=== PATIENT | female | born 2000 | race African-American/Black ===

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

== ENCOUNTER 2022-05-11 08:16 | Inpatient (IN) | payer OTHER ==
[~2022-05-11] VITALS: Ht 157.5 cm; Wt 93.9 kg
[2022-05-11] MEDS ORDERED: FENTANYL CITRATE/PF 50MCG/ML 2ML VIAL ONE (09:00)
[2022-05-11] MEDS ORDERED: EPHEDRINE SULFATE 50MG/ML VIAL ONE (09:00)
[2022-05-11] MEDS ORDERED: MORPHINE SULFATE/PF 1MG/ML 10ML AMP ONE (09:00)
[2022-05-11] MEDS ORDERED: CLINDAMYCIN 900 MG PREMIX 50 ML IV ONE (09:01)
[2022-05-11] MEDS ORDERED: OXYTOCIN 10 UNITS/ML 1ML ONE (09:01)
[2022-05-11] MEDS ORDERED: PHENYLEPHRINE HCL 10 MG/ML 1ML (IV VIAL) IV ONE (09:01)
[2022-05-11] MEDS ORDERED: ONDANSETRON HCL 4MG/2ML INJ ONE (09:01)
[2022-05-11] MEDS ORDERED: METHYLERGONOVINE MALEATE 0.2 MG/ML IM PRN (09:30)
[2022-05-11] MEDS ORDERED: LACTATED RINGERS 1,000 ML IV SCH (09:30)
[2022-05-11] MEDS ORDERED: NALOXONE HCL 0.4 MG/ML 1ML VIAL IM PRN (09:30)
[2022-05-11] MEDS: LACTATED RINGERS 1,000 ML IV SCH ×2 (10:00→16:00)
[2022-05-11 10:35] LABS: BASOPHILS % 0.3 % (0.0-2.0); EOSINOPHILS % 1.4 % (0.0-5.0); HEMATOCRIT. 30.1 % (36.0-48.0); HEMOGLOBIN. 9.9 g/dL (12.0-16.0); LYMPHOCYTES % 18.2 % (20.0-50.0); MEAN CORPUSCULAR HEMOGLOBIN 28.9 pg (28.0-32.0); MEAN CORPUSCULAR VOLUME 87.9 fL (81.0-99.0); NEUTROPHILS % 72.1 % (40.0-76.0); PLATELET 163 x1000/uL (130-400); RED BLOOD CELL COUNT 3.42 mill/uL (4.2-5.4); RED CELL DISTRIBUTION WIDTH 16.4 % (11.6-14.6)
[2022-05-11 10:36] LABS: CLARITY URINE CLEAR (CLEAR); COLOR URINE YELLOW (YELLOW); KETONES URINE NEGATIVE (NEGATIVE); LEUKOCYTE ESTERASE URINE TRACE (NEGATIVE); NITRITE URINE NEGATIVE (NEGATIVE); OCCULT BLOOD URINE NEGATIVE (NEGATIVE); PROTEIN URINE NEGATIVE (NEGATIVE); SPECIFIC GRAVITY URINE 1.003 (1.005-1.030); UROBILINOGEN URINE 0.2 E.U./dL (0.2-1.0)
[2022-05-11 10:45] LABS: CHLORIDE 109 mEq/L (98-107)
[2022-05-11 10:49] LABS: PARTIAL THROMBOPLASTIN TIME 27.6 sec (23.4-31.0); PROTHROMBIN TIME 10.3 sec (9.6-11.0)
[2022-05-11 11:17] LABS: *AMPHETAMINES SCREEN URINE NEGATIVE (NEGATIVE); *BARBITURATES SCREEN URINE NEGATIVE (NEGATIVE); *BENZODIAZEPINES SCREEN URINE NEGATIVE (NEGATIVE); *COCAINE SCREEN URINE NEGATIVE (NEGATIVE); CANNABINOID URINE SCREEN NEGATIVE (NEGATIVE); METHADONE URINE SCREEN NEGATIVE (NEGATIVE); OPIATES URINE SCREEN NEGATIVE (NEGATIVE); PHENCYCLIDINE URINE SCREEN NEGATIVE (NEGATIVE)
[2022-05-11] MEDS ORDERED: KCL 20MEQ/100ML PREMIX 100 ML IV SCH (11:30)
[2022-05-11 14:04] LABS: HEPATITIS B SURFACE ANTIGEN NEGATIVE
[2022-05-11] MEDS ORDERED: CITRIC ACID/SODIUM CITRATE SOLN 30ML UDC PO NR (14:15)
[2022-05-11] MEDS ORDERED: DIPHENHYDRAMINE 50MG/ML VIAL ONE (17:38)
[2022-05-11] MEDS ORDERED: KETOROLAC 60MG/2ML VIAL IM ONE (17:38)
[2022-05-11] MEDS ORDERED: BUTORPHANOL TARTRATE 2 MG/ML VIAL IV PRN (18:15)
[2022-05-11] MEDS ORDERED: NALOXONE HCL 0.4 MG/ML 1ML VIAL IV PRN (18:15)
[2022-05-11] MEDS ORDERED: DIPHENHYDRAMINE 50MG/ML VIAL IV PRN (18:15)
[2022-05-11 20:15] VITALS: BP 117/65
[2022-05-11] MEDS: OXYTOCIN 30 UNITS/500ML NS PMX 500 ML IV SCH ×2 (20:18→22:09)
[2022-05-11 21:15] VITALS: BP 119/64
[2022-05-11] MEDS: KETOROLAC 30MG/ML VIAL IV SCH (22:09)
[2022-05-12 00:01] VITALS: BP 103/57
[2022-05-12] MEDS: LACTATED RINGERS 1,000 ML IV SCH (02:15)
[2022-05-12 04:00] VITALS: BP 111/68
[2022-05-12] MEDS: KETOROLAC 30MG/ML VIAL IV SCH (04:09)
[2022-05-12 08:03] VITALS: BP 102/65
[2022-05-12 08:51] LABS: BASOPHILS % 0.5 % (0.0-2.0); EOSINOPHILS % 0.5 % (0.0-5.0); HEMATOCRIT. 24.6 % (36.0-48.0); HEMOGLOBIN. 8.1 g/dL (12.0-16.0); LYMPHOCYTES % 17.3 % (20.0-50.0); MEAN CORPUSCULAR VOLUME 88.5 fL (81.0-99.0); MEAN PLATELET VOLUME 8.8 fl (7.4-10.4); MONOCYTES % 7.5 % (2.0-8.0); NEUTROPHILS % 74.2 % (40.0-76.0); PLATELET 136 x1000/uL (130-400); RED BLOOD CELL COUNT 2.78 mill/uL (4.2-5.4); RED CELL DISTRIBUTION WIDTH 16.5 % (11.6-14.6)
[2022-05-12] MEDS ORDERED: HEMORRHOIDAL SUPP PR PRN (10:15)
[2022-05-12] MEDS ORDERED: IBUPROFEN 400MG TABLET PO PRN (10:15)
[2022-05-12] MEDS ORDERED: ONDANSETRON HCL 4MG/2ML INJ IV PRN (10:15)
[2022-05-12] MEDS ORDERED: RHO(D) IMMUNE GLOBULIN 300 MCG/SYR IM PRN (10:15)
[2022-05-12] MEDS ORDERED: OXYTOCIN 30 UNITS/500ML NS PMX 500 ML IV SCH (10:15)
[2022-05-12] MEDS: IBUPROFEN 800MG TABLET PO PRN (12:57)
[2022-05-12] MEDS ORDERED: FENTANYL CITRATE/PF 50MCG/ML 2ML VIAL IV PRN (13:00)
[2022-05-12] MEDS ORDERED: NALOXONE HCL 0.4 MG/ML 1ML VIAL IV PRN (13:00)
[2022-05-12] MEDS ORDERED: KETOROLAC 30MG/ML VIAL IV SCH (13:00)
[2022-05-12] MEDS ORDERED: MORPHINE SULFATE 10 MG/ML CPJ IV PRN (13:00)
[2022-05-12 16:30] VITALS: BP 129/73
[2022-05-12] MEDS: MAGNESIUM/ALUMINUM HYDROXIDE/SIMETHICONE 30ML UDC PO SCH ×2 (17:51→21:22)
[2022-05-12] MEDS: HYDROCODONE/ACETAMINOPHEN 5/325MG TABLET PO PRN (17:52)
[2022-05-12] MEDS: SIMETHICONE 80MG TABLET CHEW PO SCH ×2 (17:52→21:22)
[2022-05-12] MEDS: DOCUSATE SODIUM 100MG CAPSULE PO SCH (21:21)
[2022-05-12 22:00] VITALS: BP 120/70
[2022-05-13] VITALS: BP 98/52
[2022-05-13] MEDS: IBUPROFEN 800MG TABLET PO PRN ×2 (00:21→06:45)
[2022-05-13 06:07] VITALS: BP 132/52
[2022-05-13 06:55] LABS: BASOPHILS % 0.2 % (0.0-2.0); EOSINOPHILS % 1.3 % (0.0-5.0); HEMATOCRIT. 26.5 % (36.0-48.0); HEMOGLOBIN. 8.9 g/dL (12.0-16.0); LYMPHOCYTES % 17.8 % (20.0-50.0); MEAN CORPUSCULAR HEMOGLOBIN 29.4 pg (28.0-32.0); MEAN CORPUSCULAR VOLUME 87.6 fL (81.0-99.0); MEAN PLATELET VOLUME 9.4 fl (7.4-10.4); MONOCYTES % 9.3 % (2.0-8.0); NEUTROPHILS % 71.4 % (40.0-76.0); PLATELET 155 x1000/uL (130-400); RED BLOOD CELL COUNT 3.02 mill/uL (4.2-5.4); RED CELL DISTRIBUTION WIDTH 16.5 % (11.6-14.6)
[2022-05-13] MEDS: MAGNESIUM/ALUMINUM HYDROXIDE/SIMETHICONE 30ML UDC PO SCH ×3 (08:40→21:36)
[2022-05-13] MEDS: FERROUS SULFATE 325MG TABLET PO SCH ×2 (08:40→17:47)
[2022-05-13] MEDS: SIMETHICONE 80MG TABLET CHEW PO SCH ×3 (08:40→21:37)
[2022-05-13 11:00] VITALS: BP 127/70
[2022-05-13 16:00] VITALS: BP 129/74
[2022-05-13] MEDS: HYDROCODONE/ACETAMINOPHEN 5/325MG TABLET PO PRN (17:48)
[2022-05-13] MEDS: DOCUSATE SODIUM 100MG CAPSULE PO SCH (21:36)
[2022-05-13 22:09] VITALS: BP 123/73
[2022-05-14 05:17] VITALS: BP 121/70
[2022-05-14] MEDS: HYDROCODONE/ACETAMINOPHEN 5/325MG TABLET PO PRN (05:52)
[2022-05-14] MEDS: FERROUS SULFATE 325MG TABLET PO SCH (08:30)
[2022-05-14] MEDS: MAGNESIUM/ALUMINUM HYDROXIDE/SIMETHICONE 30ML UDC PO SCH (08:30)
[2022-05-14] MEDS: SIMETHICONE 80MG TABLET CHEW PO SCH (08:31)
[2022-05-14] MEDS ORDERED: IBUP-2030 MT (09:42)
[2022-05-14 10:00] VITALS: BP 120/62
[2022-05-14] MEDS ORDERED: MEASLES,MUMPS&RUBELLA VACCINE 1 VIAL SUBCUT ONE (10:15)
[2022-05-14] MEDS ORDERED: NALOXONE HCL 0.4MG/ML VIAL IV PRN (15:30)
[2022-05-14] MEDS ORDERED: MORPHINE SULFATE 4 MG/ML CPJ (NOT FOR IM USE) IV PRN (15:30)
== END 2022-05-14 17:15 | disposition home or self-care (01) | DRG 540 ==
LOC: OBSVTOIN 08:16 → 8 EST LDRP 08:16 → 8EST 19:58
PROVIDERS: ADMIT Obstetrics & Gynecology; ATTEND Obstetrics & Gynecology
PROC: 10D00Z1 Extraction of Products of Conception, Low, Open Approach (ICD-10-PCS; principal; 2022-05-11)
DX: O36.63X0 Maternal care for excessive fetal growth, third trimester, not applicable or unspecified (principal); D62 Acute posthemorrhagic anemia; O99.02 Anemia complicating childbirth; O48.0 Post-term pregnancy; Z20.822 Contact with and (suspected) exposure to COVID-19; Z88.1 Allergy status to other antibiotic agents; Z37.0 Single live birth; Z3A.40 40 weeks gestation of pregnancy
CPT/HCPCS: 36415; 76805; 76818; 80053; 80305; 81003; 84550; 85025; 85384; 86592; 86703; 86762; 86850; 86900; 87340; 87426; 88307; 90707; 99281; J1200; J1885; J2274; J2370; J2405; J3010; J3480; J3490; J7120; J2590

== ENCOUNTER 2025-08-19 18:02 | Emergency (ER) | payer MEDICAID, OTHER ==
[~2025-08-19] VITALS: Ht 160 cm; Wt 66.0 kg
[~2025-08-19 18:02] MED LIST changes: +IBUP-2030 MT
[2025-08-19 18:12] VITALS: O2SAT 99
[2025-08-19 20:16] LABS: BASOPHILS % 0.6 % (0.0-2.0); EOSINOPHILS % 1.2 % (0.0-5.0); HEMATOCRIT. 37.2 % (36.0-48.0); HEMOGLOBIN. 12.1 g/dL (12.0-16.0); LYMPHOCYTES % 19.7 % (20.0-50.0); MEAN PLATELET VOLUME 8.6 fl (7.4-10.4); MONOCYTES % 5.9 % (2.0-8.0); NEUTROPHILS % 72.6 % (40.0-76.0); PLATELET 278 x1000/uL (130-400); RED BLOOD CELL COUNT 4.08 mill/uL (4.2-5.4); RED CELL DISTRIBUTION WIDTH 15.0 % (11.6-14.6)
[2025-08-19 20:27] LABS: HCG SCREEN POSITIVE
[2025-08-19 20:29] LABS: INR 1.0
[2025-08-19 20:32] LABS: CREATININE 0.6 mg/dL (0.6-1.0); UREA NITROGEN BLOOD 6 mg/dL (9-23)
[2025-08-19 20:33] LABS: B-HCG QUANTITATIVE 566 mIU/mL (<6)
[2025-08-19 20:34] LABS: ASPARTATE AMINOTRANSFERASE 14 IU/L (<34); BILIRUBIN DIRECT 0.3 mg/dL (<=3.0)
[2025-08-19 20:35] LABS: BILIRUBIN TOTAL 0.9 mg/dL (0.1-1.0); PROTEIN TOTAL 7.1 g/dL (6.0-8.3)
[2025-08-19] MEDS: ACETAMINOPHEN 325MG TABLET PO ONE (21:14)
[2025-08-19] MEDS: DIPHENHYDRAMINE 25MG CAPSULE PO ONE (21:14)
[2025-08-19] MEDS ORDERED: ACET-2708 MT (21:23)
[2025-08-19 21:57] VITALS: BP 137/84; PULSE 82; RESP 15; TEMP 37; O2SAT 98
[2025-08-19 22:20] LABS: CLARITY URINE CLOUDY (CLEAR); COLOR URINE RED (YELLOW); SPECIFIC GRAVITY URINE 1.030 (1.005-1.030)
[2025-08-19 22:21] LABS: GLUCOSE URINE NEGATIVE (NEGATIVE); PH URINE 6.5 (4.5-8.0); PROTEIN URINE 2+ (NEGATIVE)
[2025-08-19 22:22] LABS: KETONES URINE TRACE (NEGATIVE); LEUKOCYTE ESTERASE URINE TRACE (NEGATIVE); NITRITE URINE NEGATIVE (NEGATIVE); OCCULT BLOOD URINE 3+ (NEGATIVE); UROBILINOGEN URINE 1.0 E.U./dL (0.2-1.0)
[2025-08-19 22:34] LABS: BACTERIA URINE 2+; RBC URINE TNTC /hpf (0-2); SQUAMOUS EPITHELIAL CELL URINE 1+ /lpf (RARE/1+); WBC URINE 0-2 /hpf (0-2)
== END 2025-08-19 21:55 | disposition home or self-care (01) ==
LOC: ER 18:02
DX: O03.9 Complete or unspecified spontaneous abortion without complication (principal); Z3A.01 Less than 8 weeks gestation of pregnancy; Z88.1 Allergy status to other antibiotic agents; Z79.899 Other long term (current) drug therapy
CPT/HCPCS: 80076; 80048; 81003; 84703; 84702; 83735; 85025; 85610; 85730; 86850; 86900; 86901; 36415; 76856; 99284; Q0163; Z7610

== ENCOUNTER 2025-08-21 09:51 | Emergency (ER) | payer MEDICAID, OTHER ==
[~2025-08-21] VITALS: Ht 165.1 cm; Wt 66.0 kg
[~2025-08-21 09:51] MED LIST changes: +ACET-2708 MT
[2025-08-21 09:54] VITALS: O2SAT 97
[2025-08-21] MEDS: HYDROCODONE/ACETAMINOPHEN 5/325MG TABLET PO ONE (11:04)
[2025-08-21] MEDS: IBUPROFEN 800MG TABLET PO ONE (11:04)
[2025-08-21] MEDS: ACETAMINOPHEN 325MG TABLET PO ONE (11:21)
[2025-08-21 11:22] LABS: CREATININE 0.7 mg/dL (0.6-1.0)
[2025-08-21 11:23] LABS: B-HCG QUANTITATIVE 133 mIU/mL (<6); UREA NITROGEN BLOOD 8 mg/dL (9-23)
[2025-08-21 11:24] LABS: ASPARTATE AMINOTRANSFERASE 16 IU/L (<34)
[2025-08-21 11:25] LABS: BILIRUBIN DIRECT 0.3 mg/dL (<=3.0); BILIRUBIN TOTAL 1.1 mg/dL (0.1-1.0); PROTEIN TOTAL 7.0 g/dL (6.0-8.3)
[2025-08-21] MEDS ORDERED: IBUP-2030 MT (12:42)
[2025-08-21] MEDS ORDERED: HYDR-4001 MT (12:43)
[2025-08-21 12:51] VITALS: BP 128/71; PULSE 90; RESP 16; TEMP 36.8; O2SAT 99
== END 2025-08-21 12:52 | disposition home or self-care (01) ==
LOC: ER 09:51
DX: O03.9 Complete or unspecified spontaneous abortion without complication (principal); R10.20 Pelvic and perineal pain unspecified side; Z88.1 Allergy status to other antibiotic agents
CPT/HCPCS: 80076; 80048; 84702; 36415; 99284; Z7610; A4606